=== PATIENT | female | born 1975 | race Caucasian/White ===

== ENCOUNTER 2019-02-04 22:18 | Emergency (ER) | payer SELFPAY ==
[~2019-02-04] VITALS: Ht 160 cm; Wt 65.1 kg
[~2019-02-04 22:18] MED LIST: DOXY-8 PO; HYDR28.457 TP; NO HOME MEDS
[2019-02-04] MEDS ORDERED: normal saline 1000ML IV soln IVB ONE (22:55)
[2019-02-04] MEDS ORDERED: ketorolac trometh. 30mg/ml inj. IV ONE (23:10)
[2019-02-04] MEDS ORDERED: ondansetron/PF 4mg/2ml inj IV ONE (23:10)
[2019-02-04 23:15] LABS: BASOPHILS # (AUTO) 0.1 X10'3 (0-0.2); BASOPHILS % (AUTO) 0.8 % (0-1); EOSINOPHILS # (AUTO) 0.5 X10'3 (0-0.9); EOSINOPHILS % (AUTO) 4.8 % (0-6); HEMATOCRIT 40.6 % (35.0-45.0); HEMOGLOBIN 13.7 g/dl (12.0-16.0); LYMPHOCYTES # (AUTO) 2.5 X10'3 (1.1-4.8); LYMPHOCYTES % (AUTO) 24.6 % (21-51); MEAN CORPUSCULAR HEMOGLOBIN 30.6 PG (27.0-31.0); MEAN CORPUSCULAR HGB CONC 33.8 g/dL (33.0-36.5); MEAN CORPUSCULAR VOLUME 90.7 FL (78-98); MEAN PLATELET VOLUME 8.9 FL (7.4-10.4); MONOCYTES # (AUTO) 0.7 X10'3 (0-0.9); MONOCYTES % (AUTO) 7.3 % (2-12); NEUTROPHILS # (AUTO) 6.3 X10'3 (1.8-7.7); NEUTROPHILS % (AUTO) 62.5 % (42-75); PLATELET COUNT 319 X10'3 (140-440); RED BLOOD COUNT 4.48 X10'6 (4.20-5.60); WHITE BLOOD COUNT 10.1 X10'3 (4.5-11.0)
[2019-02-04 23:30] LABS: ALANINE AMINOTRANSFERASE 33 U/L (12-78); ALBUMIN 3.8 G/DL (3.4-5.0); ALBUMIN/GLOBULIN RATIO 1.1 (1.1-1.5); ALKALINE PHOSPHATASE 45 IU/L (46-116); ANION GAP 6 (8-16); ASPARTATE AMINO TRANSFERASE 17 U/L (10-37); BILIRUBIN,TOTAL 0.2 MG/DL (0.1-1.0); BLOOD UREA NITROGEN 15 MG/DL (7-18); BUN/CREATININE RATIO 18.1 (6.6-38.0); CALCIUM 8.9 MG/DL (8.5-10.1); CHLORIDE 105 MMOL/L (99-107); CREATININE 0.83 MG/DL (0.40-0.90); GLUCOSE 90 MG/DL (70-104); LIPASE 129 U/L (73-393); POTASSIUM 4.2 MMOL/L (3.5-5.1); SODIUM 139 MMOL/L (135-145); TOTAL PROTEIN 7.3 G/DL (6.4-8.2); eGFR 76 ML/MIN
[2019-02-04 23:38] VITALS: BP 118/78
[2019-02-04] MEDS ORDERED: TRAM50TA2 PO (23:42)
[2019-02-04] MEDS ORDERED: ONDA4TAB6 PO (23:42)
== END 2019-02-05 00:02 | disposition home or self-care (01) ==
LOC: ER 22:19
DX: K80.20 Calculus of gallbladder without cholecystitis without obstruction (principal); R11.2 Nausea with vomiting, unspecified; Z88.5 Allergy status to narcotic agent; Z88.0 Allergy status to penicillin; Z79.899 Other long term (current) drug therapy
CPT/HCPCS: 36415; 80053; 83690; 85025; 96361; 96374; 96375; 99284; J1885; J2405; J7030

== ENCOUNTER 2019-02-11 07:29 | Observation (INO) | payer MEDICAID, OTHER ==
[2019-02-11] VITALS (9 sets, daily range): BP systolic 93–110; BP diastolic 58–69
[~2019-02-11] VITALS: Ht 160 cm; Wt 63.7 kg
[~2019-02-11 07:29] MED LIST changes: +ONDA4TAB6 PO; +TRAM50TA2 PO
[2019-02-11 08:02] LABS: BASOPHILS # (AUTO) 0.1 X10'3 (0-0.2); EOSINOPHILS # (AUTO) 0.4 X10'3 (0-0.9); EOSINOPHILS % (AUTO) 4.9 % (0-6); HEMOGLOBIN 14.3 g/dl (12.0-16.0); LYMPHOCYTES # (AUTO) 2.6 X10'3 (1.1-4.8); LYMPHOCYTES % (AUTO) 30.5 % (21-51); MEAN CORPUSCULAR HEMOGLOBIN 30.7 PG (27.0-31.0); MEAN CORPUSCULAR VOLUME 90.5 FL (78-98); MEAN PLATELET VOLUME 8.9 FL (7.4-10.4); MONOCYTES # (AUTO) 0.5 X10'3 (0-0.9); MONOCYTES % (AUTO) 6.3 % (2-12); NEUTROPHILS # (AUTO) 4.9 X10'3 (1.8-7.7); NEUTROPHILS % (AUTO) 57.3 % (42-75); PLATELET COUNT 317 X10'3 (140-440); RED BLOOD COUNT 4.65 X10'6 (4.20-5.60); RED CELL DISTRIBUTION WIDTH 12.8 % (11.5-14.5); WHITE BLOOD COUNT 8.5 X10'3 (4.5-11.0)
[2019-02-11 08:15] LABS: ALANINE AMINOTRANSFERASE 33 U/L (12-78); ALBUMIN 3.7 G/DL (3.4-5.0); ALBUMIN/GLOBULIN RATIO 1.1 (1.1-1.5); ALKALINE PHOSPHATASE 42 IU/L (46-116); AMYLASE 49 U/L (25-115); ANION GAP 5 (8-16); ASPARTATE AMINO TRANSFERASE 16 U/L (10-37); BILIRUBIN,TOTAL 0.6 MG/DL (0.1-1.0); BLOOD UREA NITROGEN 12 MG/DL (7-18); BUN/CREATININE RATIO 14.8 (6.6-38.0); CHLORIDE 105 MMOL/L (99-107); CREATININE 0.81 MG/DL (0.40-0.90); GLUCOSE 86 MG/DL (70-104); LIPASE 110 U/L (73-393); POTASSIUM 4.1 MMOL/L (3.5-5.1); SODIUM 139 MMOL/L (135-145); TOTAL CARBON DIOXIDE 28.8 MMOL/L (24-32); TOTAL PROTEIN 7.2 G/DL (6.4-8.2); eGFR 78 ML/MIN
[2019-02-11 08:20] LABS: CALCIUM 8.7 MG/DL (8.5-10.1)
[2019-02-11] MEDS ORDERED: normal saline 1000ML IV soln IVB ONE (08:30)
[2019-02-11] MEDS ORDERED: ondansetron/PF 4mg/2ml inj IV ONE (08:30)
[2019-02-11] MEDS ORDERED: ringers solution, lacted 1,000 ML IV SCH ×2 (08:48→09:32)
[2019-02-11] MEDS ORDERED: meperidine/PF 25mg/ml syringe IV PRN ×3 (08:50)
[2019-02-11] MEDS ORDERED: proCHLORperazine 10 MG/2 ml inj IV PRN (08:50)
[2019-02-11] MEDS ORDERED: ondansetron/PF 4mg/2ml inj IV PRN (08:50)
[2019-02-11] MEDS ORDERED: ketorolac trometh. 30mg/ml inj. IV ONE (09:15)
[2019-02-11] MEDS ORDERED: INDOCYANINE GREEN 25 MG VIAL IV ONE ×2 (09:35→10:08)
[2019-02-11] MEDS ORDERED: CLINDAmcin 900mg/NS 50ml IVPB 50 ML IV ONE (09:35)
[2019-02-11] MEDS ORDERED: clindamycin-Cleocin 900mg/D5W 50 ML IV ONE (09:40)
[2019-02-11] MEDS ORDERED: LIDOcaine 1% 30ml preserv. free vial ONE (11:47)
[2019-02-11] MEDS ORDERED: BUPIVAcaine/PF 2.5 mg/ml (0.25%) 30ml vial ONE (11:47)
[2019-02-11] MEDS ORDERED: dexamethasone sod phosphate 10mg/ml inj ONE (11:55)
[2019-02-11] MEDS ORDERED: desflurane 240ml liquid inh. IH ONE (11:55)
[2019-02-11] MEDS ORDERED: fentaNYL/PF 50MCG/1 ML 2ML syringe ONE (12:04)
[2019-02-11] MEDS ORDERED: midazolam 2 mg/2 ml injection ONE (12:04)
[2019-02-11] MEDS ORDERED: rocuronium 10mg/ml inj IV ONE (12:06)
[2019-02-11] MEDS ORDERED: acetaminophen 1,000mg/100ml IV 100 ML IV ONE (12:15)
[2019-02-11] MEDS ORDERED: ondansetron/PF 4mg/2ml inj ONE (12:15)
[2019-02-11] MEDS ORDERED: propofol inj 20 ML IV ONE (12:15)
[2019-02-11] MEDS ORDERED: LIDOcaine 2% (20mg/ml) 5ml vial ONE (12:15)
--- NOTE | 2019-02-11 13:20 | NUR ---
ADMITTED TO PACU FROM OR ACCOMPANIED BY ANESTHESIA. INTIAL PHYSICAL ASSESSMENT DONE AND RECORDED. REPORT RECEIVED FROM ANESTHESIA.
[2019-02-11] MEDS ORDERED: oxyCODONE/APAP 5-325mg tablet PO PRN ×2 (13:30)
--- NOTE | 2019-02-11 14:30 | NUR ---
REMAINS SLEEPY HOWEVER IS AROUSABLE TO NAME, FOLLOWS SIMPLE COMMANDS
[2019-02-11] MEDS ORDERED: oxyCODONE/APAP 5-325mg tablet PO ONE (14:50)
--- NOTE | 2019-02-11 15:00 | NUR ---
DISCHARGE CRITERIA MET, DISCHARGE INSTRUCTIONS GIVEN, DEMONSTRATES VERBAL UNDERSTANDING. DISCHARGED HOME IN GOOD CONDITION.
== END 2019-02-11 15:00 | disposition home or self-care (01) ==
LOC: ER 07:29 → ED HOLD 09:47
PROVIDERS: ADMIT Surgery; ATTEND Surgery
DX: K80.60 Calculus of gallbladder and bile duct with cholecystitis, unspecified, without obstruction (principal); R11.2 Nausea with vomiting, unspecified; Z88.0 Allergy status to penicillin; Z88.5 Allergy status to narcotic agent
CPT/HCPCS: 36415; 47563; 80053; 82150; 83690; 85025; 85610; 96361; 96374; 96375; 99284; G0378; J0131; J1885; J2001; J2250; J2405; J2704; J3010; J3490; J7120; S2900; A4215; A4618; A7000; J1100

== ENCOUNTER 2019-08-25 02:23 | Emergency (ER) | payer MEDICAID, OTHER ==
[~2019-08-25] VITALS: Ht 157.5 cm; Wt 56.8 kg
[~2019-08-25 02:23] MED LIST changes: -TRAM50TA2 PO
[2019-08-25] MEDS ORDERED: diphenhydrAMINE 50 mg/ml inj IV ONE (02:45)
[2019-08-25] MEDS ORDERED: normal saline 1000ML IV soln IVB ONE ×2 (02:45)
[2019-08-25] MEDS ORDERED: glycopyrrolate 0.2mg/ml inj IV ONE (02:45)
[2019-08-25] MEDS ORDERED: ketorolac trometh. 30mg/ml inj. IV ONE (02:45)
[2019-08-25] MEDS ORDERED: metoclopramide 5 mg/ml inj IV ONE (02:45)
[2019-08-25 02:54] LABS: BASOPHILS # (AUTO) 0.1 X10'3 (0-0.2); BASOPHILS % (AUTO) 0.8 % (0-1); EOSINOPHILS # (AUTO) 0.3 X10'3 (0-0.9); HEMATOCRIT 40.9 % (35.0-45.0); HEMOGLOBIN 13.6 g/dl (12.0-16.0); LYMPHOCYTES # (AUTO) 2.8 X10'3 (1.1-4.8); LYMPHOCYTES % (AUTO) 16.8 % (21-51); MEAN CORPUSCULAR HEMOGLOBIN 29.9 PG (27.0-31.0); MEAN CORPUSCULAR HGB CONC 33.4 g/dL (33.0-36.5); MEAN CORPUSCULAR VOLUME 89.7 FL (78-98); MEAN PLATELET VOLUME 9.1 FL (7.4-10.4); MONOCYTES # (AUTO) 1.1 X10'3 (0-0.9); MONOCYTES % (AUTO) 6.7 % (2-12); NEUTROPHILS # (AUTO) 12.4 X10'3 (1.8-7.7); NEUTROPHILS % (AUTO) 73.7 % (42-75); PLATELET COUNT 273 X10'3 (140-440); RED BLOOD COUNT 4.55 X10'6 (4.20-5.60); RED CELL DISTRIBUTION WIDTH 13.1 % (11.5-14.5); WHITE BLOOD COUNT 16.8 X10'3 (4.5-11.0)
--- NOTE | 2019-08-25 02:59 | NUR ---
PT STATES SHES UNABLE TO VOID AT THIS TIME FOR UA. PT STATES SHE WILL LET ME KNOW WHEN SHE NEEDS TO URINATE TO GIVE SAMPLE. WILL CONTINUE TO MONTIOR AND ENCOURAGE UA SAMPLE
[2019-08-25 03:03] LABS: ALANINE AMINOTRANSFERASE 34 U/L (12-78); ALBUMIN 3.7 G/DL (3.4-5.0); ALBUMIN/GLOBULIN RATIO 1.1 (1.1-1.5); ALKALINE PHOSPHATASE 57 IU/L (46-116); ANION GAP 8 (8-16); ASPARTATE AMINO TRANSFERASE 18 U/L (10-37); BILIRUBIN,TOTAL 0.6 MG/DL (0.1-1.0); BLOOD UREA NITROGEN 11 MG/DL (7-18); BUN/CREATININE RATIO 12.8 (6.6-38.0); CHLORIDE 104 MMOL/L (99-107); CREATININE 0.86 MG/DL (0.40-0.90); GLUCOSE 105 MG/DL (70-104); LIPASE 106 U/L (73-393); POTASSIUM 3.8 MMOL/L (3.5-5.1); SODIUM 140 MMOL/L (135-145); TOTAL CARBON DIOXIDE 27.6 MMOL/L (24-32); TOTAL PROTEIN 7.1 G/DL (6.4-8.2); eGFR 72 ML/MIN
[2019-08-25] MEDS ORDERED: normal saline 1000ml 1,000 ML IV ONE (03:35)
--- NOTE | 2019-08-25 03:35 | NUR ---
SPOKE WITH EDID OHLFS ABOUT PT NOT VOIDING YET, OHLFS GAVE VERBAL ORDER FOR 1 MORE LITER NORMAL SALINE BOLUS. ORDER COMPLETED
[2019-08-25] MEDS ORDERED: DICY10CA88 PO (03:52)
[2019-08-25] MEDS ORDERED: ONDA4TAB12 PO (03:52)
[2019-08-25 04:15] VITALS: BP 95/57
== END 2019-08-25 04:17 | disposition home or self-care (01) ==
LOC: ER 02:24
DX: R11.2 Nausea with vomiting, unspecified (principal); R19.7 Diarrhea, unspecified; R10.84 Generalized abdominal pain; E86.0 Dehydration; Z90.49 Acquired absence of other specified parts of digestive tract; Z72.89 Other problems related to lifestyle; Z60.2 Problems related to living alone; Z88.5 Allergy status to narcotic agent; Z88.0 Allergy status to penicillin; Z79.899 Other long term (current) drug therapy
CPT/HCPCS: 36415; 80053; 83690; 84145; 85025; 96374; 96375; 99284; J1200; J1885; J2765; J7030; J3490

== ENCOUNTER 2019-10-03 01:25 | Emergency (ER) | payer SELFPAY ==
[~2019-10-03] VITALS: Ht 157.5 cm; Wt 56.8 kg
[~2019-10-03 01:25] MED LIST changes: +ONDA4TAB12 PO
[2019-10-03] MEDS ORDERED: LORazepam 2 mg/ml vial IV ONE ×2 (01:50→02:40)
--- NOTE | 2019-10-03 02:59 | NUR ---
pt had an IV placed on Right AC. Blood was collected for lab in case there were lab orders. Collected 10CC's of blood and gave to estate tax examiner Matt. Orozco RN in room. IV was then secured and was given Ativan, she then was given 100cc of NS to flush. Pt c/o of tenderness in the area. Waited to see if pt received full dose. Pt states she doesn't think she got much, she felt like maybe she had "a little" Dr. Milligan made aware, she was given another 1mg IM injection of Ativan, ok per Dr. Milligan to give IM. IV taken out. Warm pack placed. No coldness noted, edema felt near the IV sight.
[2019-10-03 03:35] VITALS: BP 102/70
== END 2019-10-03 03:58 | disposition home or self-care (01) ==
LOC: ER 01:26
DX: F41.9 Anxiety disorder, unspecified (principal); Z90.49 Acquired absence of other specified parts of digestive tract; Z72.89 Other problems related to lifestyle; Z60.2 Problems related to living alone; Z88.5 Allergy status to narcotic agent; Z88.0 Allergy status to penicillin; Z88.8 Allergy status to other drugs, medicaments and biological substances; Z79.899 Other long term (current) drug therapy
CPT/HCPCS: 93005; 96374; 96376; 99284; J2060

== ENCOUNTER 2024-08-12 10:52 | Emergency (ER) | payer BC ==
[~2024-08-12] VITALS: Ht 157.5 cm; Wt 62.2 kg
[~2024-08-12 10:52] MED LIST changes: +ONDA-243 PO; -ONDA4TAB12 PO
[2024-08-12 10:56] VITALS: BP 115/80; PULSE 85; RESP 18; O2SAT 100
[2024-08-12 11:49] VITALS: TEMP 98.9
== END 2024-08-12 11:51 | disposition home or self-care (01) ==
LOC: ER 10:53
DX: R21 Rash and other nonspecific skin eruption (principal); Z88.0 Allergy status to penicillin; Z88.5 Allergy status to narcotic agent; Z88.8 Allergy status to other drugs, medicaments and biological substances; Z90.49 Acquired absence of other specified parts of digestive tract
CPT/HCPCS: 36415; 87798; 99283

== ENCOUNTER 2024-12-19 08:48 | Emergency (ER) | payer BC ==
[~2024-12-19] VITALS: Ht 157.5 cm; Wt 60.6 kg
[2024-12-19 08:55] VITALS: BP 127/57; PULSE 95; RESP 16; O2SAT 98
[2024-12-19] MEDS ORDERED: AZIT250T2 PO (09:15)
--- NOTE | 2024-12-19 09:16 | Physician Documentation ---
History of Present Illness ~ Chief Complaint: Sore Throat Stated Complaint: COLD SYMPTOMS Time Seen by MD: 08:57 Primary Medical Doctor: KAN basilio Source: patient Mode of Arrival: POV Exam Limitations: no limitations HPI 49-year-old female with complaints of sore throat and subjective fever starting last night. Both grandchildren happened diagnosed with strep throat. Patient is here for evaluation and antibiotics Medication Reconciliation Allergies: Coded Allergies: morphine (Verified Allergy, Intermediate, RASH AND ITCH, 06/13/10) Penicillins (Verified Allergy, Mild, RASH, 06/13/10) hydrocodone bit (Verified Allergy, Mild, VOMITING, 06/13/10) Scheduled Doxycycline Hyclate* (Vibramycin*), 100 MG PO Q12H Hydrocortisone Cream* (Hytone Cream*), 1 APPLIC TP BID Ondansetron Hcl (Zofran), 1 TAB PO Q6H Scheduled PRN ONDANSETRON ODT 4mg tablet (Ondansetron Odt), 1 TABLET PO Q6H PRN for nausea/vomiting Miscellaneous Medications Home Med List (No Home Medications), (Reported) Past Medical History Past Medical History: Cholelithiasis Past Surgical History: cholecystectomy Alcohol Use: Occasionally Drug Use: none Lives with: Alone Lives In: Home Occupation: employed Review of Systems All Other Systems at this time: Reviewed and Negative ENT: Reports: throat pain Physical Exam Vital Signs: RN Vital Signs have been reviewed: Yes, Temperature: 98.1, Source: Temporal, Heart Rate: 95, Respiratory Rate: 16, BP: 127/57, Pulse Oximetry: 98, Weight: 60.600 General Appearance: alert, WD/WN, no apparent distress Eye Lid: normal inspection Conjunctiva: normal inspection Mouth/Throat: normal mouth inspection, pharynx tenderness, tonsillar exudate, tonsillar erythema; No: tongue swollen, tonsillar hypertrophy, uvula swelling Teeth/Gums: normal inspection Face: normal inspection; No: swelling Head: normal inspection; No: swelling Neck: non-tender, full range of motion Respiratory: lungs clear Chest: no accessory muscle use Cardiovascular: regular rate, rhythm Progress Results/Orders Results/Orders Vital Signs 12/19/24 08:55 Temp 98.1 Pulse 95 Resp 16 B/P (MAP) 127/57 Pulse Ox 98 Medical Decision Making Findings Erythema with minimal exudate. No adenopathy noted close contact with family with similar symptoms. Antibiotic prescribed Throat Diff Dx: Considerations: Include: Epiglottitis, Infection mononucleosis, Bret's angina, Peritonsillar abscess, Peritonsillar cellulitis, Pharyngitis- diphtheria, Pharyngitis-strepococcal, Pharyngitis-viral, URI Departure Time of Disposition: 09:13 Disposition: 01 HOME / SELF CARE / HOMELESS Impression: Primary Impression: Acute pharyngitis Qualified Codes: J02.0 - Streptococcal pharyngitis Condition: Stable Discharge Instructions: Strep Throat, Adult Additional Instructions: Antibiotics as prescribed [id number] medications for symptomatic treatment. Follow up with primary care as needed Referrals: NO PRIMARY CARE PROVIDER (PCP) Prescriptions Azithromycin (Zithromax) 250 Mg Tablet 1 TAB PO UD for 5 Days, #6 TAB 2 the first day followed by 1 for days 2-5 Prov: KEISHA COMER NP 12/19/24 Education Educated: Patient Educated regarding: diagnosis, treatment, need for follow up Signature Scribe Signature: No scribe Attestation: The note accurately reflects work and decisions made by me.Keisha PATEL 12/19/24 09:15 KEISHA COMER NP Dec 19, 2024 09:15
[2024-12-19 09:22] VITALS: TEMP 98.1
== END 2024-12-19 09:23 | disposition home or self-care (01) ==
LOC: ER 08:49
DX: J02.9 Acute pharyngitis, unspecified (principal); R50.9 Fever, unspecified; Z88.5 Allergy status to narcotic agent; Z88.0 Allergy status to penicillin; Z90.49 Acquired absence of other specified parts of digestive tract; Z72.89 Other problems related to lifestyle; Z79.899 Other long term (current) drug therapy; Z60.2 Problems related to living alone
CPT/HCPCS: 99283